=== PATIENT | male | born 1930 | race Caucasian/White ===

== ENCOUNTER 2016-07-06 05:10 | Observation (INO) | payer MEDICARE, OTHER ==
--- NOTE | 2016-07-06 06:28 | EDM.PDOC ---
ED HPI GENERAL MEDICAL PROBLEM - General Chief Complaint: General Stated Complaint: fall, G tube out Time Seen by Provider: 07/06/16 06:18 Source of Information: Reports: Patient History Limitations: Reports: No Limitations - History of Present Illness INITIAL COMMENTS - FREE TEXT/NARRATIVE: Patient brought in with complaints of increasing rates of falling, oc g- tube has been ripped out. He is non verbal and communicates with a thumbs up or down. Has been increasingly incontinent per his . History of Parkinson' s, HTN. is primary historian. Was seen by his primary yesterday for left leg swelling, weakness, and left leg pain. Onset: Today Onset Date: 06/29/16 Duration: Getting Worse Severity: Moderate Improves with: Reports: None Worsens with: Reports: None Associated Symptoms: Reports: No Other Symptoms Left Knee Pain Score (Numeric/FACES): 0 - Related Data Allergies Allergy/AdvReac Type Severity Reaction Status Date / Time alprazolam Allergy Delusions Verified 07/06/16 05:23 clonazepam Allergy Delusions Verified 07/06/16 05:23 duloxetine HCl Allergy Delusions Verified 07/06/16 05:23 [From Cymbalta] eszopiclone [From Lunesta] Allergy Delusions Verified 07/06/16 05:23 lorazepam Allergy Hallucinati Verified 07/06/16 05:23 ons mirtazapine Allergy Delusions Verified 07/06/16 05:23 trazodone Allergy Delusions Verified 07/06/16 05:23 zolpidem tartrate Allergy Delusions Verified 07/06/16 05:23 [From Ambien] Home Meds: Home Meds Albuterol Sulfate [Albuterol Sulfate HFA] 1 - 2 puff IH Q4H PRN 05/01/14 [ History] Carbidopa/Levodopa [Sinemet Cr 25-100 mg] 2 each GTUBE ASDIRECTED 05/01/14 [ History] Tamsulosin [Flomax] 2 cap PO DAILY 05/01/14 [History] rOPINIRole HCl [Requip] 1 mg GTUBE ASDIRECTED 05/01/14 [History] Atropine Sulfate [Atropine Sulfate] 1 - 2 drop SL Q4HR PRN 07/06/16 [History] Chlorhexidine Gluconate [Peridex 0.12% Rinse] 15 ml MM ASDIRECTED 07/06/16 [ History] Glycopyrrolate 2 mg GTUBE ASDIRECTED 07/06/16 [History] Metoprolol Succinate [Toprol XL] 12.5 mg PO BID 07/06/16 [History] Mirtazapine [Mirtazapine] 0.5 tab GTUBE BEDTIME 07/06/16 [History] Nitroglycerin 0.4 mg SL ASDIRECTED PRN 07/06/16 [History] Polyethylene Glycol 3350 [MiraLAX] 8.5 gm PO BID 07/06/16 [History] guaiFENesin [Children's Mucinex] 600 mg GTUBE BID 07/06/16 [History] Past Medical History HEENT History: Reports: Impaired Vision Cardiovascular History: Reports: High Cholesterol Genitourinary History: Reports: Prostate Disorder Neurological History: Reports: Parkinson's Other Neuro History: Restless legs Social & Family History - Tobacco Use Smoking Status *Q: Never Smoker Second Hand Smoke Exposure: No - Alcohol Use Days Per Week of Alcohol Use: 0 - Recreational Drug Use Recreational Drug Use: No ED ROS GENERAL - Review of Systems Review Of Systems: Unable To Obtain ED EXAM, GENERAL - Physical Exam Exam: See Below Exam Limited By: Physical Impairment General Appearance: Alert, WD/WN, No Apparent Distress Eye Exam: Bilateral Eye: EOMI, PERRL Ears: Normal TMs Throat/Mouth: Normal Inspection, Normal Oropharynx Head: Atraumatic, Normocephalic Neck: Normal Inspection Respiratory/Chest: No Respiratory Distress, Lungs Clear, Normal Breath Sounds Cardiovascular: Normal Peripheral Pulses, Regular Rate, Rhythm, No Edema GI/Abdominal: Normal Bowel Sounds, Soft, Non-Tender Extremities: Normal Inspection, Normal Range of Motion, Non-Tender, No Pedal Edema, Normal Capillary Refill Neurological: Alert, Oriented, CN II-XII Intact, Normal Cognition, Normal Gait Psychiatric: Normal Affect, Normal Mood Skin Exam: Warm, Dry, Intact Lymphatic: No Adenopathy Course - Vital Signs Last Recorded V/S: Last Vital Signs Temp 37.2 C 07/06/16 05:12 Pulse 79 07/06/16 05:12 Resp 30 H 07/06/16 05:12 BP 118/56 L 07/06/16 05:12 Pulse Ox 91 L 07/06/16 05:12 - Orders/Labs/Meds Orders: Active Orders 24 hr Category Date Time Status Chest 1V Frontal [CR] Stat Exams 07/06/16 06:34 Ordered B-TYPE NATRIURETIC PEPTIDE,BNP [CHEM] Stat Lab 07/06/16 06:34 Ordered C-REACTIVE PROTEIN [CHEM] Stat Lab 07/06/16 06:34 Ordered CBC WITH AUTO DIFF [HEME] Stat Lab 07/06/16 06:34 Ordered COMPREHENSIVE METABOLIC PN,CMP [CHEM] Stat Lab 07/06/16 06:34 Ordered INR,PT,PROTHROMBIN TIME [COAG] Stat Lab 07/06/16 06:34 Ordered URINALYSIS W/MICROSCOPIC [UA W/MICROSCOPIC] [URIN] Stat Lab 07/06/16 06:46 Ordered - Re-Assessments/Exams Free Text/Narrative Re-Assessment/Exam: 07/06/16 06:59 [facility] bed is available and call. Departure - Departure Time of Disposition: 07:01 Disposition: Refer to Observation Condition: good Clinical Impression: Parkinson's disease - Discharge Information Forms: ED Department Discharge Additional Instructions: Patient to go to observation until [place] has a bed. - My Orders Last 24 Hours: My Active Orders 07/06/16 06:34 Chest 1V Frontal [CR] Stat B-TYPE NATRIURETIC PEPTIDE,BNP [CHEM] Stat C-REACTIVE PROTEIN [CHEM] Stat CBC WITH AUTO DIFF [HEME] Stat COMPREHENSIVE METABOLIC PN,CMP [CHEM] Stat INR,PT,PROTHROMBIN TIME [COAG] Stat 07/06/16 06:46 URINALYSIS W/MICROSCOPIC [UA W/MICROSCOPIC] [URIN] Stat - Assessment/Plan Last 24 Hours: My Active Orders 07/06/16 06:34 Chest 1V Frontal [CR] Stat B-TYPE NATRIURETIC PEPTIDE,BNP [CHEM] Stat C-REACTIVE PROTEIN [CHEM] Stat CBC WITH AUTO DIFF [HEME] Stat COMPREHENSIVE METABOLIC PN,CMP [CHEM] Stat INR,PT,PROTHROMBIN TIME [COAG] Stat 07/06/16 06:46 URINALYSIS W/MICROSCOPIC [UA W/MICROSCOPIC] [URIN] Stat
[2016-07-06] MEDS ORDERED: Morphine 4 MG/ML Syringe IVPUSH ONE ×2 (07:18→09:41)
[2016-07-06] MEDS ORDERED: Levofloxacin/Dextrose 5%-Water 500 MG in Premix Bag 1 BAG IV ONE (07:31)
[2016-07-06 07:48] LABS: CHLORIDE,CL 103 mmol/L (98-107); SODIUM,NA 138 mmol/L (136-145)
[2016-07-06] MEDS: Carbidopa/Levodopa 25-100 MG Tab PO SCH ×2 (10:56→11:02)
[2016-07-06 10:58] VITALS: BP 110/59
[2016-07-06] MEDS ORDERED: Metoprolol Tartrate 25 MG Tab PO SCH (11:00)
[2016-07-06] MEDS ORDERED: Carbidopa/Levodopa 25-100 MG Tab PO SCH (16:00)
--- NOTE | 2016-07-07 07:45 | DISCH ---
ADMITTING PROVIDER: LYNDSEY Herring. DISCHARGING PROVIDER: Cesar Matta PA-C. ADMITTING DIAGNOSES: 1. Increased confusion and weakness secondary to community-acquired pneumonia. 2. Pulled G-tube. DISCHARGE DIAGNOSES: 1. Increased confusion and weakness secondary to community-acquired pneumonia. 2. Pulled G-tube. SUBJECTIVE: Mr. Lau was admitted on observation status with increased falling and weakness and confusion. The patient's states that he has been incontinent of urine and has been experiencing severe weakness. The patient was initially seen by Hari Ro. Please refer to his emergency room notes and admission H and P. The patient was started on IV Levaquin and arrangements were made by Hari Ro to have the patient transported to [facility] for replacement of his G-tube. Dr. Ingram at [facility] was the accepting physician. The patient had to be admitted on observation status as [facility] was on diversion. At the time of arrival to the emergency room and subsequently, the patient was admitted early in the afternoon when bed space was available. The patient has also been complaining of left knee pain. The patient's states that he has a history of severe osteoarthritis and states that this discomfort is worse than normal. PHYSICAL EXAMINATION: General: An 86-year-old male patient, who is in no acute distress. Vital Signs: Pulse rate 67, temperature is 37.5, blood pressure is 110/59, respiratory rate is 20, O2 saturations 92% on room air, pulse rate is 67. Skin: Warm, pale, and dry. HEENT: Head is normocephalic, atraumatic. Eyes, PERRLA. Extraocular movements are intact. Mouth, oral mucosa is moist. No erythema or exudate noted in the hypopharynx. Neck: Supple without masses. There is no lymphadenopathy. Lungs: Diminished in the bases. Heart: Regular rate and rhythm. Abdomen: Soft and nontender. There is no hepatosplenomegaly noted. There is no masses noted. Extremities: Without edema. Neurologic: The patient is confused and weak. He does respond to strong verbal stimuli. LABORATORY DATA: WBCs 19.4, hemoglobin is 12.3, platelets are 211. Coags, PT 11.5, INR is 1.0. Chemistry: Sodium is 138, potassium is 4.0 chloride is 103, bicarb is 28, BUN is 34, creatinine is 1.0. GFR is greater than 60. Glucose is 109. Lactic acid is 1.0 corrected. Calcium is 9.1, corrected calcium is 9.5. Total bilirubin is 1.0, AST is 26, ALT is 22, alkaline phosphatase is 97. C- reactive protein is 17.6, proBNP is 965. Urinalysis reveals specific gravity 1.020. PH is 7.0. Did have a trace of glucose and ketones as well as trace of occult blood and negative nitrites or leukocyte esterase. HOSPITAL COURSE: Again, the patient was admitted to our facility. He was kept n.p.o. as he would likely require sedation and possible anesthesia for replacement of the G-tube. Again, he was given 500 mg of Levaquin IV. DISCHARGE CONDITION: Fair. DISPOSITION: Transferred by [facility] ground ambulance to [facility] in [place], [place]. MWK: 07/06/2016 15:25:11 MODL: 07/06/2016 15:59:05 /[id number]
== END 2016-07-06 11:35 | disposition short-term general hospital (02) ==
LOC: VM.ED 05:10 → VM.MS 07:02
PROVIDERS: ADMIT Nurse Practitioner Family; ATTEND Nurse Practitioner Family
DX: R41.0 Disorientation, unspecified (principal); R53.1 Weakness; K94.23 Gastrostomy malfunction; J18.9 Pneumonia, unspecified organism; E78.00 Pure hypercholesterolemia, unspecified; Z79.899 Other long term (current) drug therapy; Z88.8 Allergy status to other drugs, medicaments and biological substances
CPT/HCPCS: 36415; 71010; 80053; 81001; 83605; 83880; 85025; 85610; 86140; 87040; 96365; 96375; 99284; G0378; J1956; J2270; 96374; 99219; A9270-GY